=== PATIENT | male | born 1990 | race American Indian/Alaskan Native ===

== ENCOUNTER 2020-07-25 12:03 | Emergency (ER) | payer SELFPAY ==
[2020-07-25 12:28] VITALS: BP 139/82
[2020-07-25] MEDS ORDERED: KETOROLAC 60 MG/2 ML INJ IM ONE (12:43)
[2020-07-25] MEDS ORDERED: predniSONE 20 MG TAB PO ONE (12:43)
[2020-07-25 13:00] LABS: Basophils % (Auto) 0.4 % (0.0-1.8); Hematocrit 42.6 % (35.5-45.6); Hemoglobin 13.8 gm/dl (11.8-15.2); Lymphocytes # (Auto) 1.5 K/mm3 (1.2-5.4); Lymphocytes % (Auto) 33.8 % (13.4-35.0); Mean Corpuscular HGB Conc 32 % (32-34); Mean Corpuscular Volume 74 fl (84-94); Monocytes # (Auto) 0.4 K/mm3 (0.0-0.8); Monocytes % (Auto) 7.8 % (0.0-7.3); Platelet Count 220 K/mm3 (140-440); Red Blood Count 5.79 M/mm3 (3.65-5.03); Red Cell Distribution Width 12.8 % (13.2-15.2)
[2020-07-25 13:16] LABS: Bilirubin,Urine NEG (Negative); Blood,Urine NEG (Negative); Color,Urine Yellow (Yellow); Mucus,Urine FEW /HPF; Protein,Urine <15 mg/dL mg/dL (Negative); Urobilinogen,Urine < 2.0 mg/dL (<2.0); WBC,Urine < 1.0 /HPF (0.0-6.0)
--- NOTE | 2020-07-25 13:53 | Ultrasound Report ---
LIMITED RUQ ABDOMINAL ULTRASOUND INDICATION: right upper abd pain. COMPARISON: No relevant prior imaging study available. FINDINGS: Pancreas: Visualized portions show no significant abnormality. Abdominal Aorta: Normal size. IVC: No significant abnormality. Liver: The liver measures 15.3 cm in length. No significant abnormality. Normal hepatopedal blood fl ow in the main portal vein. Gallbladder: No significant abnormality. Bile ducts: No significant abnormality. Common bile duct measures 2 mm. Right kidney: Simple renal cyst measuring 2.0 cm in the upper pole. Free fluid: None. Additional Findings: None. IMPRESSION: 1. No acute abnormality. 2. Simple right renal cyst. Signer Name: Al Llamas MD Signed: 07/25/2020 1:47 PM Workstation Name: [id number]
--- NOTE | 2020-07-25 14:29 | XRay Report ---
BILATERAL RIBS WITH PA CHEST FILM 7 IMAGES INDICATION / CLINICAL INFORMATION: joseph rib pain. COMPARISON: None available. 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 Ribs are otherwise negative. PA chest radiograph shows no pneumothorax, pleural fluid or acute disease. Signer Name: Ravinder Fiore MD Signed: 07/25/2020 2:24 PM Workstation Name: [id number]
[2020-07-25 14:47] LABS: Alanine Aminotransferase 20 units/L (7-56); Albumin 4.5 g/dL (3.9-5); BUN/Creatinine Ratio 8; Blood Urea Nitrogen 9 mg/dL (9-20); Calcium 9.1 mg/dL (8.4-10.2); Hemolysis Index 25
--- NOTE | 2020-07-25 15:17 | Emergency Department Report ---
ED Back Pain/Injury HPI - General Chief Complaint: Back Pain/Injury Stated Complaint: UPPER BACK PAIN/ABD PAIN Time Seen by Provider: 07/25/20 12:36 Source: patient Limitations: No Limitations - History of Present Illness Initial Comments: This is a 29-year-old male nontoxic, well nourished in appearance, no acute signs of distress presents to the ED with c/o of acute bilateral rib/mid back pain x1 day. Patient stated that worse on right side with radiation to right upper abdomen. Patient stated that symptoms all started after he had a sneeze and developed sharp pain that worsened throughout the day and today. Patient denies any injuries or trauma. Denies any bladder or bowel instability. Patient denies any urinary symptoms. Denies any fever, chills, nausea, vomiti ng, headache, stiff neck, chest pain or shortness of breath. Denies any blood in stool. Patient denies any diarrhea or constipation. Patient denies any numbness or tingling. Patient denies any significant past medical history but stated has allergies to codeine. MD Complaint: back pain, other (RUQ abdominal pain) -: days(s) (1) Place: work Radiation: other (RUQ abdomen) Severity: mild Severity scale (0 -10): 8 Quality: aching Consistency: intermittent Improves With: immobilization, sitting upright Worsens With: movement, walking, other (palpation) Associated Symptoms: abdominal pain. denies: confusion, weakness, chest pain, numbness, difficulty walking, cough, difficulty urinating, diaphoresis, incontinence, fever/chills, constipation, headaches, loss of appetite, malaise, nausea/vomiting, rash, seizure, shortness of breath, syncope - Related Data Previous Rx's Medication Instructions Recorded Last Taken Type Cyclobenzaprine [Flexeril] 10 mg PO QHS PRN #10 tablet 07/25/20 Unknown Rx Naproxen 500 mg PO Q12H PRN #12 tablet 07/25/20 Unknown Rx Allergies Allergy/AdvReac Type Severity Reaction Status Date / Time codeine AdvReac Unknown Verified 07/25/20 12:29 ED Review of Systems ROS: Stated complaint: UPPER BACK PAIN/ABD PAIN Other details as noted in HPI Constitutional: denies: chills, fever Eyes: denies: eye pain, eye discharge, vision change ENT: denies: ear pain, throat pain Respiratory: denies: cough, shortness of breath, wheezing Cardiovascular: denies: chest pain, palpitations Endocrine: no symptoms reported Gastrointestinal: abdominal pain. denies: nausea, vomiting, diarrhea, constipat ion, hematemesis, melena, hematochezia Genitourinary: denies: urgency, dysuria Musculoskeletal: back pain. denies: joint swelling, arthralgia Skin: denies: rash, lesions Neurological: denies: headache, weakness, paresthesias Psychiatric: denies: anxiety, depression Hematological/Lymphatic: denies: easy bleeding, easy bruising ED Past Medical Hx - Past Medical History Previous Medical History?: No - Surgical History Past Surgical History?: No - Medications Home Medications: Home Medications Medication Instructions Recorded Confirmed Last Taken Type Cyclobenzaprine [Flexeril] 10 mg PO QHS PRN #10 tablet 07/25/20 Unknown Rx Naproxen 500 mg PO Q12H PRN #12 tablet 07/25/20 Unknown Rx ED Physical Exam - General Limitations: No Limitations General appearance: alert, in no apparent distress - Head Head exam: Present: atraumatic, normocephalic - Eye Eye exam: Present: normal appearance - Neck Neck exam: Present: normal inspection, full ROM. Absent: tenderness, meningismu s, lymphadenopathy - Respiratory Respiratory exam: Present: normal lung sounds bilaterally, chest wall tenderness (bilateral posterior mid rib pain). Absent: respiratory distress, wheezes, rales, rhonchi, stridor, accessory muscle use, decreased breath sounds, prolonged expiratory - Cardiovascular Cardiovascular Exam: Present: regular rate, normal rhythm, normal heart sounds. Absent: bradycardia, tachycardia, irregular rhythm, systolic murmur, diastolic murmur, rubs, gallop - GI/Abdominal GI/Abdominal exam: Present: soft, tenderness (RUQ), normal bowel sounds. Absent: distended, guarding, rebound, rigid, diminished bowel sounds - Extremities Exam Extremities exam: Present: normal inspection, full ROM - Back Exam Back exam: Present: normal inspection, full ROM. Absent: tenderness, CVA tender ness (R), CVA tenderness (L), muscle spasm, paraspinal tenderness, vertebral tenderness, rash noted - Neurological Exam Neurological exam: Present: alert, oriented X3, normal gait - Psychiatric Psychiatric exam: Present: normal affect, normal mood - Skin Skin exam: Present: warm, dry, intact, normal color. Absent: rash ED Course Vital Signs 07/25/20 07/25/20 12:24 15:22 Temperature 98.6 F Pulse Rate 85 Respiratory 19 18 Rate Blood Pressure 139/82 [Right] O2 Sat by Pulse 100 Oximetry - Reevaluation(s) Reevaluation #1: 07/25/20 15:18 Patient is speaking in full sentences with no signs of distress noted. ED Medical Decision Making - Lab Data Result diagrams: 07/25/20 12:46 07/25/20 12:46 Lab Results 07/25/20 07/25/20 07/25/20 Range/Units 12:46 12:46 12:59 WBC 4.6 (4.5-11.0) K/mm3 RBC 5.79 H (3.65-5.03) M/mm3 Hgb 13.8 (11.8-15.2) gm/dl Hct 42.6 (35.5-45.6) % MCV 74 L (84-94) fl MCH 24 L (28-32) pg MCHC 32 (32-34) % RDW 12.8 L (13.2-15.2) % Plt Count 220 (140-440) K/mm3 Lymph % (Auto) 33.8 (13.4-35.0) % [place] % (Auto) 7.8 H (0.0-7.3) % Eos % (Auto) 1.0 (0.0-4.3) % Baso % (Auto) 0.4 (0.0-1.8) % Lymph # (Auto) 1.5 (1.2-5.4) K/mm3 [place] # (Auto) 0.4 (0.0-0.8) K/mm3 Eos # (Auto) 0.0 (0.0-0.4) K/mm3 Baso # (Auto) 0.0 (0.0-0.1) K/mm3 Seg Neutrophils % 57.0 (40.0-70.0) % Seg Neutrophils # 2.6 (1.8-7.7) K/mm3 Sodium 137 (137-145) mmol/L Potassium 4.1 (3.6-5.0) mmol/L Chloride 99.6 (98-107) mmol/L Carbon Dioxide 32 H (22-30) mmol/L Anion Gap 10 mmol/L BUN 9 (9-20) mg/dL Creatinine 1.1 (0.8-1.3) mg/dL Estimated GFR > 60 ml/min BUN/Creatinine Ratio 8 % Glucose 98 (75-100) mg/dL Calcium 9.1 (8.4-10.2) mg/dL Total Bilirubin 0.70 (0.1-1.2) mg/dL AST 44 H (5-40) units/L ALT 20 (7-56) units/L Alkaline Phosphatase 41 (35-129) units/L Total Protein 7.5 (6.3-8.2) g/dL Albumin 4.5 (3.9-5) g/dL Albumin/Globulin Ratio 1.5 % Lipase 16 (13-60) units/L Urine Color Yellow (Yellow) Urine Turbidity Clear (Clear) Urine pH 6.0 (5.0-7.0) Ur Specific [place] 1.017 (1.003-1.030) Urine Protein <15 mg/dl (Negative) mg/dL Urine Glucose (UA) Neg (Negative) mg/dL Urine Ketones Neg (Negative) mg/dL Urine Blood Neg (Negative) Urine Nitrite Neg (Negative) Urine Bilirubin Neg (Negative) Urine Urobilinogen < 2.0 (<2.0) mg/dL Ur Leukocyte Esterase Neg (Negative) Urine WBC (Auto) < 1.0 (0.0-6.0) /HPF Urine RBC (Auto) 1.0 (0.0-6.0) /HPF Urine Mucus Few /HPF - Radiology Data [facility] [address] [place] [address] XRay Report Signed Patient: KELLEN FIERRO MR#: [id number] : 1990 Acct:[id number] Age/Sex: 29 / M ADM Date: 07/25/20 Loc: ED Attending Dr: Ordering Physician: LESA ANDRADE NP Date of Service: 07/25/20 Procedure(s): XR ribs BILAT w/PA chest 4+V Accession Number(s): [id number] cc: LESA ANDRADE NP Fluoro Time In Minutes: BILATERAL RIBS WITH PA CHEST FILM 7 IMAGES INDICATION / CLINICAL INFORMATION: joseph rib pain. COMPARISON: None available. 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 Ribs are otherwise negative. PA chest radiograph shows no pneumothorax, pleural fluid or acute disease. Signer Name: Ravinder Fiore MD Signed: 07/25/2020 2:24 PM Workstation Name: [id number] Transcribed By: TM Dictated By: Ravinder Fiore MD Electronically Authenticated By: Ravinder Fiore MD Signed Date/Time: 07/25/20 1424 DD/ 1419 TD/TT: [facility] [address] [place] [address] Ultrasound Report Signed Patient: KELLEN FIERRO MR#: [id number] : 1990 Acct:[id number] Age/Sex: 29 / M ADM Date: 07/25/20 Loc: ED Attending Dr: Ordering Physician: LESA ANDRADE NP Date of Service: 07/25/20 Procedure(s): US abdomen limited Accession Number(s): [id number] cc: LESA ANDRADE NP LIMITED RUQ ABDOMINAL ULTRASOUND INDICATION: right upper abd pain. COMPARISON: No relevant prior imaging study available. FINDINGS: Pancreas: Visualized portions show no significant abnormality. Abdominal Aorta: Normal size. IVC: No significant abnormality. Liver: The liver measures 15.3 cm in length. No significant abnormality. Normal hepatopedal blood flow in the main portal vein. Gallbladder: No significant abnormality. Bile ducts: No significant abnormality. Common bile duct measures 2 mm. Right kidney: Simple renal cyst measuring 2.0 cm in the upper pole. Free fluid: None. Additional Findings: None. IMPRESSION: 1. No acute abnormality. 2. Simple right renal cyst. Signer Name: Al Llamas MD Signed: 07/25/2020 1:47 PM Workstation Name: [id number] Transcribed By: JW Dictated By: Al Llamas MD Electronically Authenticated By: Al Llamas MD Signed Date/Time: 07/25/20 1347 DD/ 1346 TD/TT: - Medical Decision Making 29-year-old male that presents with muscular rib strain. Patient is stable and was examined by me. Labs unremarkable. Ultrasound of abdomen rule out cholecystitis cholelithiasis was negative and dictated by radiologist. X-rays of bilateral rib has been obtained and dictated by radiologist as well. Patient is notified of the ultrasound and x-ray results with no questions noted by the patient. Patient did receive Toradol and prednisone which stated symptoms has improved and subsided. I will discharge patient with Flexeril and naproxen. Patient was instructed not to operate any machinery while taking this as it may cause drowsiness. Patient was instructed to follow-up with a primary care d octor in 3-5 days or if symptoms worsen and continue return to emergency room as soon as possible. At time of discharge, the patient does not seem toxic or ill in appearance. No acute signs of distress noted. Patient agrees to discharge treatment plan of care. No further questions noted by the patient. Critical care attestation.: If time is entered above; I have spent that time in minutes in the direct care of this critically ill patient, excluding procedure time. ED Disposition Clinical Impression: Muscle strain, Right upper quadrant abdominal pain Disposition: TO HOME OR SELFCARE Is pt being admited?: No Does the pt Need Aspirin: No Condition: Stable Instructions: Cyclobenzaprine tablets Additional Instructions: Follow-up with your primary care doctor in 3-5 days or if symptoms worsen such as bladder or bowel stability, chest pain, short of breath, numbness or tingling sensation in extremities, headache, dizziness, visual changes, nausea vomiting, or abdominal pain, return back to emergency room as was possible. Take Naproxen and Flexeril as prescribed. Do not operate heavy machinery while taking Flexeril due to sedation Prescriptions: Cyclobenzaprine [Flexeril] 10 mg PO QHS PRN #10 tablet PRN Reason: Muscle Spasm Naproxen 500 mg PO Q12H PRN #12 tablet PRN Reason: Pain , Severe (7-10) Referrals: PRIMARY CAREMD [Primary Care Provider] - 3-5 Days MIMI SEVILLA MD [Staff Physician] - 3-5 Days Forms: Work/School Release Form(ED) Time of Disposition: 15:39
[2020-07-25] MEDS ORDERED: KETOROLAC 60 MG/2 ML INJ ONE (15:18)
[2020-07-25] MEDS ORDERED: predniSONE 20 MG TAB ONE (15:18)
== END 2020-07-25 16:15 | disposition home or self-care (01) ==
LOC: ED 12:03
DX: S39.011A Strain of muscle, fascia and tendon of abdomen, initial encounter (principal); Z79.899 Other long term (current) drug therapy; Z88.6 Allergy status to analgesic agent; X58.XXXA Exposure to other specified factors, initial encounter; Y93.89 Activity, other specified; Y92.89 Other specified places as the place of occurrence of the external cause; Y99.8 Other external cause status
CPT/HCPCS: 36415; 71111; 76705; 80053; 81001; 83690; 85025; 96372; 99284; J1885; J7512